=== PATIENT | female | born 1945 | race Caucasian/White ===

== ENCOUNTER 2017-12-12 05:19 | Inpatient (IN) ==
--- NOTE | 2017-12-12 08:35 | Internal Med History&Physical ---
Date of Encounter: 12/12/17 Time of Encounter: 08:29 Assessment and Plan (1) CHF (congestive heart failure) Current visit: Yes Status: Acute The patient presented here for the first time has history of a CABG 4 vessels in 1998 now presenting with congestive heart failure will obtain 2-D echo to see if is diastolic or systolic heart failure and she would need dialysis she makes very little urine according to her Qualifiers: Congestive heart failure type: unspecified Congestive heart failure chronicity: acute Qualified Code(s): I50.9 - Heart failure, unspecified (2) Pneumonia Current visit: Yes Status: Acute The chest x-ray from outside hospital she has right upper lobe pneumonia given patient information also home and on dialysis will place on Zosyn and send for blood culture Qualifiers: Pneumonia type: due to unspecified organism Laterality: right Lung location: upper lobe of lung Qualified Code(s): J18.1 - Lobar pneumonia, unspecified organism (3) HTN (hypertension) Current visit: Yes Status: Chronic Chronic and uncontrolled resume home medication and make some adjustment for better blood pressure control Qualifiers: Hypertension type: essential hypertension Qualified Code(s): I10 - Essential (primary) hypertension (4) Hx of CABG Current visit: Yes Status: Chronic History of bypass 1998 no chest pain at present with transient troponin as well (5) Diabetes 1.5, managed as type 2 Current visit: Yes Status: Chronic Chronic resume home medication and place on sliding scale (6) Hypothyroid Current visit: Yes Status: Chronic Chronic resume home medication and check a TSH Qualifiers: Hypothyroidism type: unspecified Qualified Code(s): E03.9 - Hypothyroidism , unspecified (7) ESRD (end stage renal disease) Current visit: Yes Status: Chronic Chronic patient followed by Dr. Hood. Patient's doctor does not come here so we will consult nephrology here for dialysis Internal Medicine - H&P: HPI Chief complaint: sob Admitted From: Hospital to Hospital Transfer Plans for Post Hospital Care: Home History of present illness: Ms. Sequeira is a 72 year old female Patient transfer from [facility] due to pneumoniaand congestive heart failure. Patient has history of CABG x 4 vessels 1998, hypertension, end- stage renal disease on hemodialysis, hypothyroidism, congestive heart failure, diabetes, COPD, patient presented to [facility] with chest congestion described as nonproductive cough and shortness of breath for 2 days fever and body aches and generally not feeling well. She resides at [address] [place] [address] chest x-ray at [facility] shows congestive heart failure and the pneumonia right upper lobe patient was given vancomycin and Zosyn and then transferred here patient appears comfortable on exam she had bilateral wheezing and some rales not in respiratory distress patient will be admitted will consult nephrology for hemodialysis also obtain 2-D echo and check serial troponin patient denies any chest pain no chills no nausea vomiting no diarrhea Past Med Surg Social Fam HX - Past Medical History Medical history: CHF, COPD, coronary artery disease, diabetes, hyperlipidemia, hypertension, renal disease, thyroid disease - Past Surgical History Surgical History: angioplasty/stent, cholecystectomy, orthopedic, other Internal Medicine - H&P: Meds Atorvastatin [Lipitor] 40 mg PO HS 12/12/17 [History] Buspirone HCl [Buspar] 15 mg PO DAILY 12/12/17 [History] Calcium Acetate [Phos-LO] 667 mg PO TID 12/12/17 [History] Carvedilol [Coreg] 6.125 mg PO BID 12/12/17 [History] Insulin Glargine [Lantus] 12/12/17 [History] Ipratropium/Albuterol Neb [Duoneb] 3 ml IH AD 12/12/17 [History] Levothyroxine Sodium [Tirosint] 100 mcg PO DAILY 12/12/17 [History] Linagliptin [Tradjenta] 5 mg PO DAILY 12/12/17 [History] Lisinopril [Zestril] 10 mg PO DAILY 12/12/17 [History] Sertraline [Zoloft] 100 mg PO DAILY 12/12/17 [History] amLODIPine [Norvasc] 5 mg PO DAILY 12/12/17 [History] traZODone [TraZODone] 50 mg PO HS 12/12/17 [History] All Systems PM: A 10-system review of systems was performed and is negative for pertinent findings except as documented above in the HPI. - Constitutional Constitutional: fatigue, malaise - EENT Eyes: no change in vision, no discharge, no pain, no photophobia Ears: no ear discharge, no ear pain, no tinnitus Nose, mouth and throat: no dysphagia, no nasal discharge, no neck pain, no sore throat - Cardiovascular Cardiovascular ROS IM: dyspnea, dyspnea on exertion - Respiratory Respiratory: cough, dyspnea on exertion, wheezing - Gastrointestinal Gastrointestinal: no abdominal pain, no diarrhea, no hematemesis, no hematochezia, no melena, no nausea, no vomiting - Genitourinary Genitourinary: no change in urinary stream, no dysuria, no flank pain, no hematuria - Constitutional Vitals: Temp Pulse Resp BP Pulse Ox 99.0 F 82 17 154/71 99 12/12/17 08:19 12/12/17 08:19 12/12/17 08:19 12/12/17 08:19 12/12/17 08:19 General appearance: Present: mild distress, A&O X 3 - Eye Eye exam: Present: PERRL, conjuntiva pink, sclera anicteric Pupils: Present: PERRL - Respiratory Respiratory exam: Present: decreased breath sounds, rales, wheezes - Cardiovascular Cardiovascular exam: Present: RRR, systolic murmur - GI/Abdominal GI/Abdominal exam: Present: normal bowel sounds, soft, no peritoneal signs. Absent: distended, tenderness - Extremities Exam Extremities exam: Present: warm, radial pulses palpable and symmetrical. Absent : calf tenderness, cyanotic, pedal edema
[2017-12-12] MEDS ORDERED: Naloxone 0.4 MG/ML INJ IVP PRN (08:43)
[2017-12-12] MEDS ORDERED: Ipratropium/Albuterol Neb 3 ML IH PRN (08:49)
[2017-12-12] MEDS ORDERED: D5% in Water 1,000 ML IVC PRN (08:51)
[2017-12-12] MEDS ORDERED: Dextrose Gel 15 GM/37.5 ML TUBE PO PRN ×2 (08:51)
[2017-12-12] MEDS ORDERED: *HR* Dextrose 50 % in Water (Syg) 50 ML SYRINGE IVP PRN (08:51)
[2017-12-12] MEDS ORDERED: Calcium Acetate 667 MG CAPSULE PO SCH (09:00)
[2017-12-12] MEDS: amLODIPine 5 MG TABLET PO SCH (10:26)
[2017-12-12] MEDS: Insulin LISPRO 300 UNITS/3 ML VIAL SQ SCH ×3 (11:36→21:05)
[2017-12-12] MEDS: Ipratropium/Albuterol Neb 3 ML IH SCH ×4 (11:37→23:26)
[2017-12-12] MEDS: Acetaminophen 325 MG TABLET PO PRN ×2 (11:41→21:07)
[2017-12-12] MEDS: Calcium Acetate 667 MG CAPSULE PO SCH ×2 (11:41→18:15)
--- NOTE | 2017-12-12 11:52 | Nephrology Consult Note ---
<Erin Alvarenga Shyla - Last Filed: 12/12/17 11:55> Date of Encounter: 12/12/17 Time of Encounter: 11:50 Assessment and Plan (1) ESRD (end stage renal disease) Status: Chronic Will plan for dialysis today Renal diet-ordered Strict I/Os-ordered Avoid nephrotoxins if possible (2) CHF (congestive heart failure) Status: Acute per primary team Qualifiers: Congestive heart failure type: unspecified Congestive heart failure chronicity: acute Qualified Code(s): I50.9 - Heart failure, unspecified (3) Diabetes 1.5, managed as type 2 Status: Chronic per primary team (4) HTN (hypertension) Status: Chronic per primary team Qualifiers: Hypertension type: essential hypertension Qualified Code(s): I10 - Essential (primary) hypertension History of Present Illness - Reason for Consult Consult date: 12/12/17 end stage renal disease - Chief Complaint CHF, ESRD on dialysis - History of Present Illness Ms. Sequeira is a 72 year old female well known to our practice who transferred from [facility] due to pneumonia and congestive heart failure. Patient has history of CABG x 4 vessels 1998, hypertension, end-stage renal disease on hemodialysis, hypothyroidism, congestive heart failure, diabetes, and COPD. She resides at [address] [place] [address]; chest x-ray at [facility] shows congestive heart failure and the pneumonia right upper lobe patient. Patient is a TTS dialysis patient at [facility] and she last had HD on Saturday. Past Med Surg Social Fam HX - Past Medical History Medical history: CHF, COPD, coronary artery disease, diabetes, hyperlipidemia, hypertension, renal disease, thyroid disease - Past Surgical History Surgical History: angioplasty/stent, cholecystectomy, orthopedic, other - Social History Smoking Status: Never smoker Smokeless Tobacco Status: No Alcohol use: none Medications and Allergies Atorvastatin [Lipitor] 40 mg PO HS 12/12/17 [History] Buspirone HCl [Buspar] 15 mg PO DAILY 12/12/17 [History] Calcium Acetate [Phos-LO] 667 mg PO TID 12/12/17 [History] Insulin Glargine [Lantus] 6 units SQ DAILY 12/12/17 [History] Ipratropium/Albuterol Neb [Duoneb] 3 ml IH AD 12/12/17 [History] Levothyroxine Sodium [Tirosint] 100 mcg PO DAILY 12/12/17 [History] Linagliptin [Tradjenta] 5 mg PO DAILY 12/12/17 [History] Lisinopril [Zestril] 10 mg PO DAILY 12/12/17 [History] Sertraline [Zoloft] 100 mg PO DAILY 12/12/17 [History] traZODone [TraZODone] 50 mg PO HS 12/12/17 [History] Carvedilol [Coreg] 25 mg PO BIDWM tablet 12/16/17 [Rx] Levofloxacin [Levaquin] 500 mg PO DAILY #1 tablet 12/16/17 [Rx] amLODIPine [Norvasc] 10 mg PO DAILY tablet 12/16/17 [Rx] predniSONE [PredniSONE] 40 mg PO DAILY #2 tablet 12/16/17 [Rx] 3 Allergy/AdvReac Type Severity Reaction Status Date / Time No Known Allergies Allergy Verified 12/12/17 10:25 Review of Systems All Systems: reviewed and no additional remarkable complaints except as stated Constitutional: malaise, no chills, no fever(s) Cardiovascular: dyspnea, no chest pain Respiratory: cough, dyspnea Gastrointestinal: no diarrhea, no vomiting Neurological: no behavioral changes Exam - Vital Signs Vital signs: Initial Vital Signs Temp Pulse Resp BP Pulse Ox 98.5 F 82 17 141/69 100 12/12/17 08:16 12/12/17 08:16 12/12/17 08:16 12/12/17 08:16 12/12/17 08:16 Vital Signs - Last 8 Hours Temp Pulse Resp BP Pulse Ox 12/12/17 11:40 18 97 12/12/17 11:24 99.9 F H 67 18 109/57 97 12/12/17 08:19 99.0 F 82 17 154/71 99 12/12/17 08:16 98.5 F 82 17 141/69 100 Intake and Output 12/11/17 12/12/17 12/12/17 23:59 07:59 15:59 Intake Total 0 / 0 Output Total 0 / 0 Balance 0 / 0 Intake: Oral 0 / 0 Output: Urine 0 / 0 Other: Weight 67.404 kg Blood Glucose* 130 Patient Weight 12/12/17 23:59 Weight 67.404 kg - General Appearance General appearance: cachectic, chronically ill, frail EENT: ATNC, mucous membranes moist, hearing intact, vision intact Neck: supple Respiratory: clear Cardiology: no edema, normal S1, normal S2 - Dialysis Access Dialysis Vascular Access: Arteriovenous Fistula Gastrointestinal: no tenderness, no guarding Integumentary: warm and dry Neurologic: alert and oriented x3 Psychiatric: mood/affect appropriate, cooperative Consult Discharge Plan - Plan Instructions: Heart Failure (DC), Chronic Hypertension (DC), Pneumonia (DC) Additional Instructions: Please follow up with your primary care physician within five days after your discharge from the hospital. Please continue oral antibiotics as prescribed (Levaquin 500 mg one tablet on 12/18/17). Continue oral steroids as prescribed. Your home meds have been changed as follows: 1. Amlodipine has been increased to 10mg once a day 2. Carvedilol has been increased to 25mg twice a day. closely monitor your blood pressure and HR. Hold Carvedilol for heart rate less than 50. Inform your primary care physician about these medication changes. These changes were made due to your elevated blood pressure readings. Resume dialysis sessions as per your primary hog room supervisor. Resume all other home medications as prescribed by your primary care physician. Referrals: Sandy Casey, ACTIVITIES CONCIERGE [Primary Care Provider] - (From [facility] at [facility]) Prescriptions: Levofloxacin [Levaquin] 500 mg PO DAILY #1 tablet <Shane Marquez - Last Filed: 12/19/17 15:49> Date of Encounter: 12/12/17 Exam - Vital Signs Vital signs: Initial Vital Signs Temp Pulse Resp BP Pulse Ox 98.5 F 82 17 141/69 100 12/12/17 08:16 12/12/17 08:16 12/12/17 08:16 12/12/17 08:16 12/12/17 08:16 Results - Lab Results 12/16/17 05:39 12/16/17 05:39 Most recent lab results Calcium 7.9 mg/dL (8.6-10.3) L 12/16/17 05:39 Phosphorus 2.1 mg/dL (2.7-4.5) L 12/16/17 05:39 Magnesium 2.0 mg/dL (1.6-2.6) 12/16/17 05:39 - Attending Attestation I examined this patient and my medical decision-making was reviewed with the Resident Physician. I agree with the documented findings, disposition and treatment plan as described except to the extent set forth below. Pt seen and examined with PMH of ESRD on HD TTS at [facility] HD unit presenting from [facility] where she was transferred for possible pNA/CHF. renal consulted for management of ESRD with HD. will provide HD T-Th-S during hospital stay starting today.
[2017-12-12] MEDS ORDERED: 0.9 % Sodium Chloride 250 ML IVC PRN (14:21)
[2017-12-12] MEDS ORDERED: 0.9 % Sodium Chloride 1,000 ML PRIME SCH (14:30)
[2017-12-12 14:51] LABS: Hepatitis B Surface Antigen Nonreactive (Nonreactive)
[2017-12-12] MEDS: MethylPREDNISolone 40 MG/ML VIAL IVP SCH (18:15)
[2017-12-12] MEDS: *HR* Heparin 5,000 UNIT/ML VIAL SQ SCH (18:15)
[2017-12-12] MEDS: traZODone 50 MG TABLET PO SCH (20:59)
[2017-12-13] MEDS: MethylPREDNISolone 40 MG/ML VIAL IVP SCH ×3 (00:25→17:11)
[2017-12-13] MEDS: Ipratropium/Albuterol Neb 3 ML IH SCH ×6 (04:11→23:10)
[2017-12-13 05:07] LABS: Hepatitis B Surface Antibody 184.74 mIU/mL
[2017-12-13] MEDS: *HR* Heparin 5,000 UNIT/ML VIAL SQ SCH ×2 (05:50→17:12)
[2017-12-13] MEDS ORDERED: *HR* Enoxaparin 40 MG/0.4 ML SYRINGE SQ SCH (06:00)
[2017-12-13 06:26] LABS: Hematocrit 32.9 % (35.3-44.9); Hemoglobin 9.6 g/dL (11.5-15.4); Mean Corpuscular HGB Conc 29.2 g/dL (31.6-35.5); Mean Corpuscular Hemoglobin 26.8 pg (28.0-33.3); Mean Corpuscular Volume 91.9 fL (83.0-100.0); Mean Platelet Volume 10.4 fL (9.4-12.4); Platelet Count 108 K/mcL (140-400); Red Blood Count 3.58 M/mcL (3.82-4.97); Red Cell Distribution Width 16.7 % (11.5-14.5)
[2017-12-13 07:06] LABS: Albumin/Globulin Ratio 0.8 (1.1-2.2); Bilirubin,Total 0.5 mg/dL (0.3-1.0); Calcium 8.3 mg/dL (8.6-10.3); Chol/HDL Ratio 2.7 (0-4.9); Globulin 3.8 g/dL (2.4-3.5); Magnesium 1.9 mg/dL (1.6-2.6); Potassium 3.8 mEq/L (3.5-5.1); Total Protein 6.8 g/dL (6.4-8.9)
[2017-12-13] MEDS: amLODIPine 5 MG TABLET PO SCH (07:42)
[2017-12-13] MEDS: Calcium Acetate 667 MG CAPSULE PO SCH ×3 (07:42→17:11)
[2017-12-13] MEDS: Insulin LISPRO 300 UNITS/3 ML VIAL SQ SCH ×4 (07:44→21:02)
--- NOTE | 2017-12-13 12:22 | Internal Med Progress Note ---
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, s/p HD on 12/12/17, clinically improved since admission monitor daily weights, I/Os, fluid restriction diet O2 supplementation monitor O2 sat, goal O2 sat: 88-92% will closely monitor respiratory status Qualifiers: Respiratory failure complication: hypoxia Qualified Code(s): J96.21 - Acute and chronic respiratory failure with hypoxia (2) HCAP (healthcare-associated pneumonia) Current Visit: Yes Status: Acute Assessment and plan: CXR prior to transfer reported RUL PNA will continue broad spectrum IV abx will de-escalate as per blood culture results and as pt clinically improves renally dosed abx (3) COPD exacerbation Current Visit: Yes Status: Acute Assessment and plan: Plan as listed above (4) CHF (congestive heart failure) Current Visit: Yes Status: Acute Assessment and plan: Plan as listed above 2D echo report noted Qualifiers: Congestive heart failure type: systolic Congestive heart failure chronicity : acute on chronic Qualified Code(s): I50.23 - Acute on chronic systolic ( congestive) heart failure (5) Diabetes mellitus Current Visit: Yes Status: Acute Assessment and plan: continue sliding scale insulin algorithm monitor FS and BG ADA diet Qualifiers: Diabetes mellitus type: type 2 Diabetes mellitus complication status: with unspecified complications Diabetes mellitus pediatrician active practice insulin use: with mcfp use Qualified Code(s): E11.8 - Type 2 diabetes mellitus with unspecified complications; Z79.4 - USP (current) use of insulin; Z79.4 - USP ( current) use of insulin; Z79.4 - USP (current) use of insulin; Z79.4 - USP (current) use of insulin (6) ESRD (end stage renal disease) Current Visit: Yes Status: Chronic Assessment and plan: Nephrology on board and consultation appreciated continue HD on //Sat (7) HTN (hypertension) Current Visit: Yes Status: Chronic Assessment and plan: BP within acceptable range continue home meds Qualifiers: Hypertension type: essential hypertension Qualified Code(s): I10 - Essential (primary) hypertension (8) Hypothyroid Current Visit: Yes Status: Chronic Assessment and plan: continue home dose of levothyroxine Qualifiers: Hypothyroidism type: unspecified Qualified Code(s): E03.9 - Hypothyroidism , unspecified (9) DVT prophylaxis Current Visit: Yes Status: Acute Assessment and plan: Heparin SQ - Subjective Interval history: Patient seen and examined at bedside. Resting in bed and reports of feeling better compared to previous day. She received HD yesterday (12/12/17) - Constitutional Vitals: Temp Pulse Resp BP Pulse Ox 98.2 F 66 16 145/52 94 12/13/17 10:15 12/13/17 10:15 12/13/17 11:35 12/13/17 11:18 12/13/17 11:35 General appearance: Present: A&O X 3, no acute distress - Head Head exam: Present: atraumatic, normocephalic - Eye Eye exam: Present: conjuntiva pink, sclera anicteric - Respiratory Respiratory exam: Absent: respiratory distress, wheezes (coarse breath sounds in b/l Upper lobes) - Cardiovascular Cardiovascular exam: Present: RRR, +S1, +S2. Absent: diastolic murmur, gallop, rubs, systolic murmur - GI/Abdominal GI/Abdominal exam: Present: normal bowel sounds, soft, no peritoneal signs. Absent: distended, tenderness - Extremities Exam Extremities exam: Present: warm, radial pulses palpable and symmetrical. Absent : calf tenderness Additional comments: s/p right foot amputation - Neurological Exam Neurological exam: Present: alert, oriented X3 - Psychiatric Psychiatric exam: Present: normal affect, normal mood Internal Medicine: Result - Labs CBC & Chem 7: 12/13/17 05:41 12/13/17 05:41 Labs: Short CBC 12/13/17 Range/Units 05:41 WBC 2.8 L (4.3-11.1) K/mcL Hgb 9.6 L (11.5-15.4) g/dL Hct 32.9 L (35.3-44.9) % Plt Count 108 L (140-400) K/mcL BMP 12/13/17 05:41 Sodium 135 L Potassium 3.8 Chloride 100 Carbon Dioxide 28 BUN 25 H Creatinine 2.06 H Glucose 197 H Calcium 8.3 L Cardiac Enzymes 12/12/17 12/12/17 Range/Units 14:05 21:16 Troponin I 0.07 H* 0.06 H* (< 0.04) ng/mL Liver Function 12/13/17 Range/Units 05:41 Total Bilirubin 0.5 (0.3-1.0) mg/dL AST 18 (13-39) Units/L ALT 7 (7-52) Units/L Alkaline Phosphatase 70 (34-104) Units/L Albumin 3.0 L (3.5-5.7) g/dL - Impressions Impressions Echocardiogram 12/12/17 08:49 Impressions: LVEF 30-35%. Normal LV chamber size and wall thickness. Global left ventricular systolic dysfunction. Indeterminate diastolic function. Atypical septal motion consistent with post-operative status. Mildly dilated and hypokinetic right ventricle. Moderate bi-atrial enlargement. Mild mitral regurgitation. Mild tricuspid regurgitation. Severe pulmonary hypertension. Estimated RVSP is 69-74 mmHg. Left Ventricular Wall Motion: Rest Echo Findings The apex, apical inferior, mid inferior, basal inferior, apical anterior, mid anterior, basal anterior, apical septal, mid inferior septal, basal inferior septal, apical lateral, mid anterior lateral, basal anterior lateral, mid anterior septal, mid inferior lateral, basal anterior septal and basal inferior lateral pedroza were hypokinetic. Findings: Study Quality * Technically adequate exam. ECG Findings * Grossly appeared to be sinus rhythm. Left Ventricle * LVEF 30-35%. * Normal LV chamber size and wall thickness. * Global left ventricular systolic dysfunction. * Indeterminate diastolic function. * Atypical septal motion consistent with post-operative status. Right Ventricle * Mildly dilated and hypokinetic right ventricle. Left Atrium * Moderately dilated left atrium. Right Atrium * Moderately dilated right atrium. Interatrial Septum * Interatrial septum not well evaluated. Aortic Valve * Aortic valve not well visualized. * No aortic stenosis. * No aortic regurgitation. Mitral Valve * Mild mitral annular calcification * Mild mitral regurgitation. * No mitral stenosis. Tricuspid Valve * Normal tricuspid valve structure. * Mild tricuspid regurgitation. * Severe pulmonary hypertension. * Estimated RVSP is 69-74 mmHg. * Estimated RA pressure is 5-10 mmHg. Pulmonic Valve * Pulmonic valve not well visualized. * No pulmonic regurgitation. Aorta * Normally sized aortic root. Pericardium * The pericardium appears normal. IVC * The IVC is dilated. * > 50% respiratory change Pulmonary Artery * Normal visualized portions of the main pulmonary artery. Consult Discharge Plan - Plan Referrals: Sandy Casey, ASSISTANT PLANT CONTROLLER [Primary Care Provider] - (From [facility] at [facility])
[2017-12-13] MEDS ORDERED: Vancomycin 1,000 MG in D5% in Water 250 ML IVPB SCH (13:00)
[2017-12-13] MEDS ORDERED: Vancomycin 500 MG in 0.9 % Sodium Chloride Mini Bag 100 ML IVPB ONE (14:00)
--- NOTE | 2017-12-13 16:19 | Nephrology Progress Note ---
Date of Encounter: 12/13/17 Time of Encounter: 16:17 - Assessment and Plan (1) ESRD (end stage renal disease) Current Visit: Yes Status: Chronic HD TRS Anticipate dialysis Saturday Renal diet. Renal dose medications. Additional dialysis as needed. (2) Pneumonia Current Visit: Yes Status: Acute Per primary team. Patient feels better today. Qualifiers: Pneumonia type: due to unspecified organism Laterality: right Lung location: upper lobe of lung Qualified Code(s): J18.1 - Lobar pneumonia, unspecified organism (3) HTN (hypertension) Current Visit: Yes Status: Chronic Blood pressure controlled. Titrate antihypertensive medications as needed. Qualifiers: Hypertension type: essential hypertension Qualified Code(s): I10 - Essential (primary) hypertension Subjective Principal diagnosis: ESRD Interval history: Patient seen. She feels better. Anticipate dialysis Saturday. Objective - Vital Signs Vital signs: Vital Signs Temp Pulse Resp BP Pulse Ox 12/13/17 15:52 16 96 12/13/17 15:08 98.4 F 72 16 136/53 98 12/13/17 12:15 98.1 F 68 18 148/62 97 12/13/17 11:35 16 94 12/13/17 11:18 145/52 12/13/17 10:15 98.2 F 66 18 146/63 96 12/13/17 09:58 97.9 F 65 16 150/62 95 12/13/17 08:20 66 18 170/68 93 12/13/17 06:42 97.5 F L 60 17 152/70 93 12/13/17 03:10 97.5 F L 66 16 155/68 95 12/13/17 00:22 97.4 F L 60 20 124/51 93 12/12/17 23:26 15 88 12/12/17 21:05 101.3 F H 65 20 124/51 94 12/12/17 19:00 98.7 F 18 148/72 12/12/17 18:30 146/63 12/12/17 18:15 136/57 12/12/17 18:00 130/61 12/12/17 17:45 123/56 12/12/17 17:30 121/54 12/12/17 17:15 119/52 12/12/17 17:00 122/53 12/12/17 16:45 118/51 12/12/17 16:30 110/54 Intake and Output 12/13/17 12/13/17 12/13/17 07:59 15:59 23:59 Intake Total 0 / 0 1090 / 1090 Balance 0 / 0 1090 / 1090 Intake: IV Fluids 100 / 100 Zosyn 3.375 GM In 0.9 % Sodium 100 / 100 Chloride 100 ML @ 25 mls/hr IVPB Q12H YANET Rx#:[id number] Oral 0 / 0 990 / 990 Other: Meal Lunch Percent of Meal Consumed 100% Stool Size Large Stool Consistency soft Stool Characteristics Normal for Patient Stool Color Brown Green # Voids 1 # Urine Diapers 1 # Bowel Movements 1 Weight 58.377 kg Blood Glucose* 218 352 Patient Weight 12/13/17 23:59 Weight 58.377 kg - General Appearance General appearance: Present: well-developed, well-nourished EENT: Present: ATNC Neck: Present: supple Cardiology: Present: regular rate Integumentary: Present: warm and dry Neurologic: Present: alert and oriented x3 Psychiatric: Present: mood/affect appropriate - Lab 12/13/17 05:41 12/13/17 05:41 Most recent lab results Calcium 8.3 mg/dL (8.6-10.3) L 12/13/17 05:41 Phosphorus 3.2 mg/dL (2.7-4.5) 12/13/17 05:41 Magnesium 1.9 mg/dL (1.6-2.6) 12/13/17 05:41 Consult Discharge Plan - Plan Referrals: Sandy Casey, HOSPITALITY HOST [Primary Care Provider] - (From [facility] at [facility])
[2017-12-13] MEDS: traZODone 50 MG TABLET PO SCH (21:01)
[2017-12-13] MEDS: traMADol 50 MG TABLET PO PRN (21:01)
[2017-12-14] MEDS: Ipratropium/Albuterol Neb 3 ML IH SCH ×6 (04:09→23:52)
[2017-12-14] MEDS: MethylPREDNISolone 40 MG/ML VIAL IVP SCH ×2 (06:23→17:09)
[2017-12-14] MEDS: *HR* Heparin 5,000 UNIT/ML VIAL SQ SCH ×2 (06:23→17:08)
[2017-12-14 06:47] LABS: Basophils % 0.5 %; Hemoglobin 9.6 g/dL (11.5-15.4); Immature Granulocytes % 1.5 % (0-4); Lymphocytes # 0.6 K/mcL (0.6-4.6); Lymphocytes % 15.5 %; Mean Corpuscular HGB Conc 29.1 g/dL (31.6-35.5); Mean Corpuscular Hemoglobin 26.5 pg (28.0-33.3); Mean Corpuscular Volume 91.2 fL (83.0-100.0); Mean Platelet Volume 10.5 fL (9.4-12.4); Monocytes # 0.4 K/mcL (0.0-1.3); Monocytes % 10.1 %; Neutrophils # 2.9 K/mcL (1.6-8.9); Nucleated Red Blood Cells 2.5 /100 WBC (0); Platelet Count 128 K/mcL (140-400); Red Blood Count 3.62 M/mcL (3.82-4.97); Red Cell Distribution Width 16.6 % (11.5-14.5); Segmented Neutrophils % 72.4 %
[2017-12-14 07:12] LABS: Calcium 8.1 mg/dL (8.6-10.3); Magnesium 2.1 mg/dL (1.6-2.6); Phosphorous 2.8 mg/dL (2.7-4.5); Potassium 3.6 mEq/L (3.5-5.1)
[2017-12-14] MEDS ORDERED: 0.9 % Sodium Chloride 250 ML IVC PRN (08:03)
[2017-12-14] MEDS: Calcium Acetate 667 MG CAPSULE PO SCH ×3 (08:10→16:15)
[2017-12-14] MEDS: amLODIPine 5 MG TABLET PO SCH (08:11)
[2017-12-14] MEDS: Insulin LISPRO 300 UNITS/3 ML VIAL SQ SCH ×4 (08:13→21:22)
[2017-12-14] MEDS ORDERED: 0.9 % Sodium Chloride 1,000 ML PRIME SCH (08:15)
[2017-12-14] MEDS ORDERED: 0.9 % Sodium Chloride 1,000 ML ONE (09:54)
--- NOTE | 2017-12-14 10:22 | Nephrology Progress Note ---
Date of Encounter: 12/14/17 Time of Encounter: 10:20 - Assessment and Plan (1) ESRD (end stage renal disease) Current Visit: Yes Status: Chronic HD TRS Patient seen on dialysis today. Renal diet. Renal dose medications. Additional dialysis as needed. (2) Pneumonia Current Visit: Yes Status: Acute Per primary team. Patient feels better today. Qualifiers: Pneumonia type: due to unspecified organism Laterality: right Lung location: upper lobe of lung Qualified Code(s): J18.1 - Lobar pneumonia, unspecified organism (3) HTN (hypertension) Current Visit: Yes Status: Chronic Blood pressure controlled. Titrate antihypertensive medications as needed. Qualifiers: Hypertension type: essential hypertension Qualified Code(s): I10 - Essential (primary) hypertension Subjective Principal diagnosis: ESRD Interval history: Patient seen on dialysis. She feels better. No new complaints. Objective - Vital Signs Vital signs: Vital Signs Temp Pulse Resp BP Pulse Ox 12/14/17 09:55 146/67 12/14/17 09:40 149/81 12/14/17 09:20 152/73 12/14/17 09:05 160/79 12/14/17 08:50 97.5 F L 20 163/74 12/14/17 07:11 16 99 12/14/17 06:55 97.6 F 58 16 160/71 98 12/14/17 04:23 98.6 F 67 19 160/84 99 12/14/17 00:21 98.3 F 69 16 151/62 98 12/13/17 23:10 17 97 12/13/17 21:10 97 12/13/17 19:44 17 97 12/13/17 19:05 98.7 F 75 18 154/65 97 12/13/17 15:52 16 96 12/13/17 15:08 98.4 F 72 16 136/53 98 12/13/17 12:15 98.1 F 68 18 148/62 97 12/13/17 11:35 16 94 12/13/17 11:18 145/52 Intake and Output 12/13/17 12/14/17 12/14/17 23:59 07:59 15:59 Intake Total 100 / 100 720 / 720 Balance 100 / 100 720 / 720 Intake: IV Fluids 100 / 100 Zosyn 3.375 GM In 0.9 % Sodium 100 / 100 Chloride 100 ML @ 25 mls/hr IVPB Q12H [facility] Rx#:[id number] Oral 120 / 120 Intake, Rinseback and Flushes 600 / 600 Other: Meal Breakfast Percent of Meal Consumed 15% Stool Size Moderate # Bowel Movement Diapers 1 Weight 59.506 kg Blood Glucose* 268 266 Hemodialysis Net Fluid Removed 185 (mL) Patient Weight 12/14/17 23:59 Weight 59.506 kg - General Appearance General appearance: Present: well-developed, well-nourished EENT: Present: ATNC Respiratory: Present: clear Cardiology: Present: no edema, regular rate Dialysis Vascular Access: Venous Catheter (AV fistula Left upper arm venous catheter right IJ.) thrill: Yes bruit: Yes Gastrointestinal: Present: no tenderness Integumentary: Present: warm and dry Neurologic: Present: alert and oriented x3 Psychiatric: Present: mood/affect appropriate - Lab 12/14/17 06:21 12/14/17 06:21 Most recent lab results Calcium 8.1 mg/dL (8.6-10.3) L 12/14/17 06:21 Phosphorus 2.8 mg/dL (2.7-4.5) 12/14/17 06:21 Magnesium 2.1 mg/dL (1.6-2.6) 12/14/17 06:21 Consult Discharge Plan - Plan Referrals: Sandy Casey, TANNING SOLUTION MAKER [Primary Care Provider] - (From [facility] at [facility])
--- NOTE | 2017-12-14 13:01 | Internal Med Progress Note ---
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 MANAGEMENT MANAGER for fluid removal, receiving HD today 12/14/17, clinically improved since admission monitor daily weights, I/Os, fluid restriction diet O2 supplementation monitor O2 sat, goal O2 sat: 88-92% will closely monitor respiratory status Qualifiers: Respiratory failure complication: hypoxia Qualified Code(s): J96.21 - Acute and chronic respiratory failure with hypoxia (2) HCAP (healthcare-associated pneumonia) Current Visit: Yes Status: Acute Assessment and plan: CXR prior to transfer reported RUL PNA will continue broad spectrum IV abx renally dosing IV abx d/sobeida Vancomycin (3) COPD exacerbation Current Visit: Yes Status: Acute Assessment and plan: Plan as listed above (4) CHF (congestive heart failure) Current Visit: Yes Status: Acute Assessment and plan: Plan as listed above 2D echo report noted Qualifiers: Congestive heart failure type: systolic Congestive heart failure chronicity : acute on chronic Qualified Code(s): I50.23 - Acute on chronic systolic ( congestive) heart failure (5) Diabetes mellitus Current Visit: Yes Status: Chronic Assessment and plan: continue sliding scale insulin algorithm monitor FS and BG ADA diet Qualifiers: Diabetes mellitus type: type 2 Diabetes mellitus complication status: with unspecified complications Diabetes mellitus superintendent terminal insulin use: with superintendent terminal use Qualified Code(s): E11.8 - Type 2 diabetes mellitus with unspecified complications; Z79.4 - correction (current) use of insulin; Z79.4 - correction ( current) use of insulin; Z79.4 - joint terminal attack controller (current) use of insulin; Z79.4 - correction (current) use of insulin (6) ESRD (end stage renal disease) Current Visit: Yes Status: Chronic Assessment and plan: Nephrology on board and consultation appreciated continue HD on //Sat (7) HTN (hypertension) Current Visit: Yes Status: Chronic Assessment and plan: BP within acceptable range continue home meds Qualifiers: Hypertension type: essential hypertension Qualified Code(s): I10 - Essential (primary) hypertension (8) Hypothyroid Current Visit: Yes Status: Chronic Assessment and plan: continue home dose of levothyroxine Qualifiers: Hypothyroidism type: unspecified Qualified Code(s): E03.9 - Hypothyroidism , unspecified (9) DVT prophylaxis Current Visit: Yes Status: Acute Assessment and plan: Heparin SQ - Subjective Interval history: Patient seen and examined in hemodialysis. Resting in bed and reports of feeling better compared to previous day. - Constitutional Vitals: Temp Pulse Resp BP Pulse Ox 97.5 F L 58 20 151/70 99 12/14/17 08:50 12/14/17 06:55 12/14/17 08:50 12/14/17 11:40 12/14/17 07:11 General appearance: Present: A&O X 3, no acute distress - Head Head exam: Present: atraumatic, normocephalic - Eye Eye exam: Present: conjuntiva pink, sclera anicteric - Respiratory Respiratory exam: Absent: rales, respiratory distress, wheezes - Cardiovascular Cardiovascular exam: Present: RRR, +S1, +S2. Absent: diastolic murmur, gallop, rubs, systolic murmur - GI/Abdominal GI/Abdominal exam: Present: normal bowel sounds, soft, no peritoneal signs. Absent: distended, tenderness - Extremities Exam Extremities exam: Present: warm, radial pulses palpable and symmetrical. Absent : calf tenderness Additional comments: s/p right foot amputation - Neurological Exam Neurological exam: Present: alert, oriented X3 - Psychiatric Psychiatric exam: Present: normal affect, normal mood Internal Medicine: Result - Labs CBC & Chem 7: 12/14/17 06:21 12/14/17 06:21 Labs: Short CBC 12/14/17 Range/Units 06:21 WBC 4.1 L (4.3-11.1) K/mcL Hgb 9.6 L (11.5-15.4) g/dL Hct 33.0 L (35.3-44.9) % Plt Count 128 L (140-400) K/mcL Neutrophils # 2.9 (1.6-8.9) K/mcL BMP 12/14/17 06:21 Sodium 134 L Potassium 3.6 Chloride 97 L Carbon Dioxide 31 H BUN 49 H Creatinine 3.45 H Glucose 274 H Calcium 8.1 L Consult Discharge Plan - Plan Referrals: Sandy Casey, STATION CAPTAIN [Primary Care Provider] - (From [facility] at [facility])
[2017-12-14] MEDS ORDERED: Vancomycin 1,000 MG in D5% in Water 250 ML IVPB ONE (16:00)
[2017-12-14] MEDS: traZODone 50 MG TABLET PO SCH (21:22)
[2017-12-15] MEDS: Ipratropium/Albuterol Neb 3 ML IH SCH ×6 (04:07→23:14)
[2017-12-15] MEDS: *HR* Heparin 5,000 UNIT/ML VIAL SQ SCH ×2 (06:00→17:11)
[2017-12-15] MEDS: amLODIPine 5 MG TABLET PO SCH (07:58)
[2017-12-15] MEDS: Calcium Acetate 667 MG CAPSULE PO SCH ×3 (07:59→16:09)
[2017-12-15] MEDS: predniSONE 20 MG TABLET PO SCH (07:59)
[2017-12-15] MEDS: Insulin LISPRO 300 UNITS/3 ML VIAL SQ SCH ×5 (08:00→21:10)
[2017-12-15 09:42] LABS: Basophils % 0.2 %; Hematocrit 33.3 % (35.3-44.9); Hemoglobin 9.7 g/dL (11.5-15.4); Immature Granulocytes % 1.4 % (0-4); Lymphocytes # 1.2 K/mcL (0.6-4.6); Lymphocytes % 23.4 %; Mean Corpuscular HGB Conc 29.1 g/dL (31.6-35.5); Mean Corpuscular Hemoglobin 26.6 pg (28.0-33.3); Mean Corpuscular Volume 91.5 fL (83.0-100.0); Mean Platelet Volume 10.5 fL (9.4-12.4); Monocytes # 0.4 K/mcL (0.0-1.3); Monocytes % 7.4 %; Neutrophils # 3.4 K/mcL (1.6-8.9); Nucleated Red Blood Cells 2.4 /100 WBC (0); Platelet Count 130 K/mcL (140-400); Red Blood Count 3.64 M/mcL (3.82-4.97); Red Cell Distribution Width 16.8 % (11.5-14.5); Segmented Neutrophils % 67.6 %
[2017-12-15 10:04] LABS: Phosphorous 2.5 mg/dL (2.7-4.5); Potassium 3.8 mEq/L (3.5-5.1)
--- NOTE | 2017-12-15 11:00 | Nephrology Progress Note ---
Date of Encounter: 12/15/17 Time of Encounter: 10:58 - Assessment and Plan (1) ESRD (end stage renal disease) Current Visit: Yes Status: Chronic HD TRS Renal diet. Renal dose medications. Additional dialysis as needed. (2) Pneumonia Current Visit: Yes Status: Acute Per primary team. Patient feels better today. Qualifiers: Pneumonia type: due to unspecified organism Laterality: right Lung location: upper lobe of lung Qualified Code(s): J18.1 - Lobar pneumonia, unspecified organism (3) HTN (hypertension) Current Visit: Yes Status: Chronic Blood pressure controlled. Titrate antihypertensive medications as needed. Qualifiers: Hypertension type: essential hypertension Qualified Code(s): I10 - Essential (primary) hypertension Subjective Principal diagnosis: ESRD Interval history: Patient seen. She has no new complaints. She wants to go home. Objective - Vital Signs Vital signs: Vital Signs Temp Pulse Resp BP Pulse Ox 12/15/17 07:20 98.2 F 55 16 161/65 99 12/14/17 23:52 16 99 12/14/17 23:20 98.4 F 62 18 145/64 100 12/14/17 20:12 17 98 12/14/17 19:29 98.2 F 61 16 159/74 100 12/14/17 16:10 16 100 12/14/17 15:45 98.5 F 65 18 147/73 100 12/14/17 12:45 98.0 F 16 154/68 12/14/17 12:40 153/69 12/14/17 12:25 156/66 12/14/17 12:10 156/70 12/14/17 11:55 160/69 12/14/17 11:40 151/70 12/14/17 11:25 150/68 12/14/17 11:10 153/69 Intake and Output 12/14/17 12/15/17 12/15/17 23:59 07:59 15:59 Intake Total 118 / 118 0 / 0 Balance 118 / 118 0 / 0 Intake: Oral 118 / 118 0 / 0 Other: Meal Ice cream Percent of Meal Consumed 15% Stool Size Smear Stool Consistency liquid # Urine Diapers 1 # Bowel Movement Diapers 1 Blood Glucose* 236 202 - General Appearance General appearance: Present: well-developed, well-nourished EENT: Present: ATNC Cardiology: Present: regular rate Integumentary: Present: warm and dry Neurologic: Present: alert and oriented x3 Psychiatric: Present: mood/affect appropriate - Lab 12/15/17 08:56 12/15/17 08:56 Most recent lab results Calcium 8.0 mg/dL (8.6-10.3) L 12/15/17 08:56 Phosphorus 2.5 mg/dL (2.7-4.5) L 12/15/17 08:56 Magnesium 2.0 mg/dL (1.6-2.6) 12/15/17 08:56 Consult Discharge Plan - Plan Referrals: Sandy Casey, SUPERVISOR TELEPHONE CLERKS [Primary Care Provider] - (From [facility] at [facility])
[2017-12-15] MEDS ORDERED: Aminoglycoside Consult 1 EACH MC ONE (14:16)
--- NOTE | 2017-12-15 15:01 | Internal Med Progress Note ---
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, s/p HD 12/14/17, clinically improved since admission monitor daily weights, I/Os, fluid restriction diet O2 supplementation monitor O2 sat, goal O2 sat: 88-92% will closely monitor respiratory status Qualifiers: Respiratory failure complication: hypoxia Qualified Code(s): J96.21 - Acute and chronic respiratory failure with hypoxia (2) HCAP (healthcare-associated pneumonia) Current Visit: Yes Status: Acute Assessment and plan: CXR prior to transfer reported RUL PNA will continue broad spectrum IV abx renally dosing IV abx will de-escalate to PO abx prelim blood culture reports NO growth, will follow up official reports (3) COPD exacerbation Current Visit: Yes Status: Acute Assessment and plan: Plan as listed above (4) CHF (congestive heart failure) Current Visit: Yes Status: Acute Assessment and plan: Plan as listed above 2D echo report noted Qualifiers: Congestive heart failure type: systolic Congestive heart failure chronicity : acute on chronic Qualified Code(s): I50.23 - Acute on chronic systolic ( congestive) heart failure (5) Diabetes mellitus Current Visit: Yes Status: Chronic Assessment and plan: Noted to be hyperglycemic added Levemir 14units SQ qHS and humalog 4units SQ TIDAC continue sliding scale insulin algorithm monitor FS and BG ADA diet will adjust insulin dosing as per her insulin requirements Qualifiers: Diabetes mellitus type: type 2 Diabetes mellitus complication status: with unspecified complications Diabetes mellitus director long term care insulin use: with director long term care use Qualified Code(s): E11.8 - Type 2 diabetes mellitus with unspecified complications; Z79.4 - oil heaterman (current) use of insulin; Z79.4 - oil heaterman ( current) use of insulin; Z79.4 - shelter (current) use of insulin; Z79.4 - shelter (current) use of insulin (6) ESRD (end stage renal disease) Current Visit: Yes Status: Chronic Assessment and plan: Nephrology on board and consultation appreciated continue HD on urs/Sat (7) HTN (hypertension) Current Visit: Yes Status: Chronic Assessment and plan: BP within acceptable range continue home meds Qualifiers: Hypertension type: essential hypertension Qualified Code(s): I10 - Essential (primary) hypertension (8) Hypothyroid Current Visit: Yes Status: Chronic Assessment and plan: continue home dose of levothyroxine Qualifiers: Hypothyroidism type: unspecified Qualified Code(s): E03.9 - Hypothyroidism , unspecified (9) DVT prophylaxis Current Visit: Yes Status: Acute Assessment and plan: Heparin SQ - Subjective Interval history: Patient seen and examined at bedside. Resting in bed and reports of feeling significantly better compared to previous day. Will continue another day of IV abx and will de-escalate to PO abx in am and tentative d/c to NH in am if remains clinically stable. - Constitutional Vitals: Temp Pulse Resp BP Pulse Ox 98.5 F 58 16 146/64 98 12/15/17 11:21 12/15/17 11:21 12/15/17 11:21 12/15/17 11:21 12/15/17 11:21 General appearance: Present: A&O X 3, no acute distress - Head Head exam: Present: atraumatic, normocephalic - Eye Eye exam: Present: conjuntiva pink, sclera anicteric - Respiratory Respiratory exam: Absent: rales (equal air entry bilaterally ), respiratory distress, wheezes - Cardiovascular Cardiovascular exam: Present: RRR, +S1, +S2. Absent: diastolic murmur, gallop, rubs, systolic murmur - GI/Abdominal GI/Abdominal exam: Present: normal bowel sounds, soft, no peritoneal signs. Absent: distended, tenderness - Extremities Exam Extremities exam: Present: warm, radial pulses palpable and symmetrical (s/p right foot amputation ). Absent: calf tenderness - Neurological Exam Neurological exam: Present: alert, oriented X3 - Psychiatric Psychiatric exam: Present: normal affect, normal mood Internal Medicine: Result - Labs CBC & Chem 7: 12/15/17 08:56 12/15/17 08:56 Labs: Short CBC 12/15/17 Range/Units 08:56 WBC 5.0 (4.3-11.1) K/mcL Hgb 9.7 L (11.5-15.4) g/dL Hct 33.3 L (35.3-44.9) % Plt Count 130 L (140-400) K/mcL Neutrophils # 3.4 (1.6-8.9) K/mcL BMP 12/15/17 08:56 Sodium 134 L Potassium 3.8 Chloride 99 Carbon Dioxide 26 BUN 36 H Creatinine 3.00 H Glucose 253 H Calcium 8.0 L Consult Discharge Plan - Plan Referrals: Sandy Casey, WEB DEVELOPER [Primary Care Provider] - (From [facility] at [facility])
[2017-12-15] MEDS ORDERED: Insulin DETEMIR 100 UNIT/ML X5UNITS SQ SCH (21:00)
[2017-12-15] MEDS: traZODone 50 MG TABLET PO SCH (21:10)
[2017-12-15] MEDS: traMADol 50 MG TABLET PO PRN (23:15)
[2017-12-16] MEDS: Ipratropium/Albuterol Neb 3 ML IH SCH ×3 (03:57→11:46)
[2017-12-16] MEDS: *HR* Heparin 5,000 UNIT/ML VIAL SQ SCH (05:16)
[2017-12-16 05:54] LABS: Basophils % 0.2 %; Hematocrit 33.1 % (35.3-44.9); Hemoglobin 10.1 g/dL (11.5-15.4); Immature Granulocytes % 1.5 % (0-4); Lymphocytes # 1.1 K/mcL (0.6-4.6); Mean Corpuscular HGB Conc 30.5 g/dL (31.6-35.5); Mean Corpuscular Hemoglobin 27.2 pg (28.0-33.3); Mean Corpuscular Volume 89.2 fL (83.0-100.0); Mean Platelet Volume 10.6 fL (9.4-12.4); Monocytes # 0.5 K/mcL (0.0-1.3); Monocytes % 9.5 %; Neutrophils # 3.6 K/mcL (1.6-8.9); Nucleated Red Blood Cells 1.7 /100 WBC (0); Platelet Count 124 K/mcL (140-400); Red Blood Count 3.71 M/mcL (3.82-4.97); Red Cell Distribution Width 16.9 % (11.5-14.5); Segmented Neutrophils % 67.8 %
[2017-12-16 06:37] LABS: Calcium 7.9 mg/dL (8.6-10.3); Phosphorous 2.1 mg/dL (2.7-4.5); Potassium 3.8 mEq/L (3.5-5.1)
[2017-12-16] MEDS ORDERED: 0.9 % Sodium Chloride 250 ML IVC PRN (07:41)
[2017-12-16] MEDS: predniSONE 20 MG TABLET PO SCH (08:00)
[2017-12-16] MEDS: Calcium Acetate 667 MG CAPSULE PO SCH ×2 (08:00→11:59)
[2017-12-16] MEDS: Insulin LISPRO 300 UNITS/3 ML VIAL SQ SCH ×4 (09:08→12:01)
[2017-12-16] MEDS: amLODIPine 5 MG TABLET PO SCH (09:13)
[2017-12-16 11:29] VITALS: BP 140/58
--- NOTE | 2017-12-16 11:42 | Discharge Summary ---
Date of Encounter: 12/16/17 Time of Encounter: 10:50 ( ) - Discharge Diagnosis (1) Acute and chronic respiratory failure Priority: Primary Status: Resolved Qualifiers: Respiratory failure complication: hypoxia Qualified Code(s): J96.21 - Acute and chronic respiratory failure with hypoxia (2) HCAP (healthcare-associated pneumonia) Priority: Primary Status: Acute (3) COPD exacerbation Priority: Primary Status: Acute (4) CHF (congestive heart failure) Priority: Secondary Status: Acute Qualifiers: Congestive heart failure type: systolic Congestive heart failure chronicity : acute on chronic Qualified Code(s): I50.23 - Acute on chronic systolic ( congestive) heart failure (5) Diabetes mellitus Priority: Secondary Status: Chronic Qualifiers: Diabetes mellitus type: type 2 Diabetes mellitus complication status: with unspecified complications Diabetes mellitus rodent exterminator insulin use: with rodent exterminator use Qualified Code(s): E11.8 - Type 2 diabetes mellitus with unspecified complications; Z79.4 - long term acute care registered nurse (current) use of insulin; Z79.4 - long term acute care registered nurse ( current) use of insulin; Z79.4 - USP (current) use of insulin; Z79.4 - long term acute care registered nurse (current) use of insulin (6) ESRD (end stage renal disease) Priority: Secondary Status: Chronic (7) HTN (hypertension) Priority: Secondary Status: Chronic Qualifiers: Hypertension type: essential hypertension Qualified Code(s): I10 - Essential (primary) hypertension (8) Hypothyroid Priority: Secondary Status: Chronic Qualifiers: Hypothyroidism type: unspecified Qualified Code(s): E03.9 - Hypothyroidism , unspecified (9) DVT prophylaxis Priority: Secondary Status: Acute - Discharge Medications Prescriptions: Levofloxacin [Levaquin] 500 mg PO DAILY #1 tablet Home Medications: Atorvastatin [Lipitor] 40 mg PO HS 12/12/17 [History] Buspirone HCl [Buspar] 15 mg PO DAILY 12/12/17 [History] Calcium Acetate [Phos-LO] 667 mg PO TID 12/12/17 [History] Insulin Glargine [Lantus] 6 units SQ DAILY 12/12/17 [History] Ipratropium/Albuterol Neb [Duoneb] 3 ml IH AD 12/12/17 [History] Levothyroxine Sodium [Tirosint] 100 mcg PO DAILY 12/12/17 [History] Linagliptin [Tradjenta] 5 mg PO DAILY 12/12/17 [History] Lisinopril [Zestril] 10 mg PO DAILY 12/12/17 [History] Sertraline [Zoloft] 100 mg PO DAILY 12/12/17 [History] traZODone [TraZODone] 50 mg PO HS 12/12/17 [History] Carvedilol [Coreg] 25 mg PO BIDWM tablet 12/16/17 [Rx] Levofloxacin [Levaquin] 500 mg PO DAILY #1 tablet 12/16/17 [Rx] amLODIPine [Norvasc] 10 mg PO DAILY tablet 12/16/17 [Rx] predniSONE [PredniSONE] 40 mg PO DAILY #2 tablet 12/16/17 [Rx] Allergies/Adverse Reactions: 3 Allergy/AdvReac Type Severity Reaction Status Date / Time No Known Allergies Allergy Verified 12/12/17 10:25 Date of admission: 12/12/17 08:43 Primary care physician: Sandy Casey CNP Consults: 12/12/17 08:45 Consult to Physician [CONS] Routine Consulting Provider: Shane Marquez Reason for Consult: esrd on hd adm with chf Time Notified: 08:46 Call Completed: No Consult to Control Operator Flow Coat [CONS] Routine Reason for SW Consult: discharge planning 12/12/17 14:30 Consult to Dialysis [CONS] ONCE 12/13/17 16:50 Consult to Occupational Therapy [CONS] Routine Comment: Evaluate, develop and implement POC Reason for Consult: eval for ecf Consult to Physical Therapy [CONS] Routine Comment: Evaluate, develop and implement POC Reason for Consult: eval for ecf 12/14/17 08:15 Consult to Dialysis [CONS] ONCE 12/16/17 07:45 Consult to Dialysis [CONS] ONCE Discharging clinician: Leda Moreland Anticipated date of discharge: 12/16/17 - Patient Status Disposition: Transfer SNF Condition: Good Functional capacity at discharge: wheelchair bound Overall status at discharge: patient is back to baseline - Discharge Instructions Follow Up With: Sandy Casey CNP [Primary Care Provider] - (From [facility] at [facility]) Additional Instructions: Please follow up with your primary care physician within five days after your discharge from the hospital. Please continue oral antibiotics as prescribed (Levaquin 500 mg one tablet on 12/18/17). Continue oral steroids as prescribed. Your home meds have been changed as follows: 1. Amlodipine has been increased to 10mg once a day 2. Carvedilol has been increased to 25mg twice a day. closely monitor your blood pressure and HR. Hold Carvedilol for heart rate less than 50. Inform your primary care physician about these medication changes. These changes were made due to your elevated blood pressure readings. Resume dialysis sessions as per your primary paper winder. Resume all other home medications as prescribed by your primary care physician. - Diet and Activity Activity: increase activity as tolerated, wear oxygen at all times, wear oxygen at night Diet: diabetic diet, low fat, low cholesterol, low salt diet Hospital course: Ms. Sequeira is a 72 year old female with PMH of CHF, ESRD on HD, COPD on LTOT, DM, HTN who was admitted for acute respiratory distress secondary to HCAP, COPD exacerbation, and volume overload secondary to CHF exacerbation. Pt was started on IV abx, systemic steroids, and underwent SENIOR LANDSCAPE ARCHITECT for volume removal. Pt responded well to therapy and abx were de-escalated as she clinically improved and based on her blood culture results. She was noted to be hypertensive upon arrival due to which her home medications were readjusted. At this time she is back to her baseline respiratory status and medically stable for discharge back to [place]. Pt in agreement with the discharge care and plan. - Time Spent with Patient Total time spent providing and/or coordinating discharge services: Greater than 30 minutes - Constitutional Vitals: Temp Pulse Resp BP Pulse Ox 98.0 F 57 16 140/58 98 12/16/17 11:28 12/16/17 11:28 12/16/17 11:28 12/16/17 11:28 12/16/17 11:28 General appearance: Present: A&O X 3, no acute distress - Head Head exam: Present: atraumatic, normocephalic - Eye Eye exam: Present: conjuntiva pink, sclera anicteric - Respiratory Respiratory exam: Present: CTAB. Absent: respiratory distress, wheezes - Cardiovascular Cardiovascular exam: Present: RRR, +S1, +S2. Absent: diastolic murmur, gallop, rubs, systolic murmur - GI/Abdominal GI/Abdominal exam: Present: normal bowel sounds, soft, no peritoneal signs. Absent: distended, tenderness - Extremities Exam Extremities exam: Present: warm, radial pulses palpable and symmetrical (s/p right foot amputation ). Absent: calf tenderness - Neurological Exam Neurological exam: Present: alert, oriented X3 - Psychiatric Psychiatric exam: Present: normal affect, normal mood
--- NOTE | 2017-12-16 11:59 | Physician Discharge Referral ---
[facility] Referral Info Transfer To: F Provider in Charge after Transfer: PCP - Diagnosis (1) Acute and chronic respiratory failure Priority: Primary Status: Resolved (2) HCAP (healthcare-associated pneumonia) Priority: Primary Status: Acute (3) COPD exacerbation Priority: Primary Status: Acute (4) CHF (congestive heart failure) Priority: Primary Status: Acute (5) Diabetes mellitus Priority: Secondary Status: Chronic (6) ESRD (end stage renal disease) Priority: Secondary Status: Chronic (7) HTN (hypertension) Priority: Secondary Status: Chronic (8) Hypothyroid Priority: Secondary Status: Chronic (9) DVT prophylaxis Priority: Secondary Status: Acute - Transfer Medications Prescriptions: Levofloxacin [Levaquin] 500 mg PO DAILY #1 tablet Home Medications: Atorvastatin [Lipitor] 40 mg PO HS 12/12/17 [History] Buspirone HCl [Buspar] 15 mg PO DAILY 12/12/17 [History] Calcium Acetate [Phos-LO] 667 mg PO TID 12/12/17 [History] Insulin Glargine [Lantus] 6 units SQ DAILY 12/12/17 [History] Ipratropium/Albuterol Neb [Duoneb] 3 ml IH AD 12/12/17 [History] Levothyroxine Sodium [Tirosint] 100 mcg PO DAILY 12/12/17 [History] Linagliptin [Tradjenta] 5 mg PO DAILY 12/12/17 [History] Lisinopril [Zestril] 10 mg PO DAILY 12/12/17 [History] Sertraline [Zoloft] 100 mg PO DAILY 12/12/17 [History] traZODone [TraZODone] 50 mg PO HS 12/12/17 [History] Carvedilol [Coreg] 25 mg PO BIDWM tablet 12/16/17 [Rx] Levofloxacin [Levaquin] 500 mg PO DAILY #1 tablet 12/16/17 [Rx] amLODIPine [Norvasc] 10 mg PO DAILY tablet 12/16/17 [Rx] predniSONE [PredniSONE] 40 mg PO DAILY #2 tablet 12/16/17 [Rx] Allergies/Adverse Reactions: 3 Allergy/AdvReac Type Severity Reaction Status Date / Time No Known Allergies Allergy Verified 12/12/17 10:25 - Respiratory Orders Smoking Cessation: Smoking cessation has been advised. For more information, call the [place] Tobacco Quit Line at 5-670-KAHS-NOW. - Rehabiliation Orders Other: Please follow up with your primary care physician within five days after your discharge from the hospital. Please continue oral antibiotics as prescribed (Levaquin 500 mg one tablet on 12/18/17). Continue oral steroids as prescribed. Your home meds have been changed as follows: 1. Amlodipine has been increased to 10mg once a day 2. Carvedilol has been increased to 25mg twice a day. closely monitor your blood pressure and HR. Hold Carvedilol for heart rate less than 50. Inform your primary care physician about these medication changes. These changes were made due to your elevated blood pressure readings. Resume dialysis sessions as per your primary teacher assistant. Resume all other home medications as prescribed by your primary care physician. CERTIFICATION: I certify that the transfer of the above named patient to an Extended Care Facility is necessary for the continuing treatment of the diagnosis listed. The above information is true and accurate reflection of patient's current condition. Confidential - Redisclosure prohibited without a patient's written consent.
--- NOTE | 2017-12-16 12:20 | Nephrology Progress Note ---
Date of Encounter: 12/16/17 Time of Encounter: 12:17 - Assessment and Plan (1) ESRD (end stage renal disease) Current Visit: Yes Status: Chronic HD TRS Renal diet. Renal dose medications. Additional dialysis as needed. (2) Pneumonia Current Visit: Yes Status: Acute Per primary team. Patient feels better today. Qualifiers: Pneumonia type: due to unspecified organism Laterality: right Lung location: upper lobe of lung Qualified Code(s): J18.1 - Lobar pneumonia, unspecified organism (3) HTN (hypertension) Current Visit: Yes Status: Chronic Blood pressure controlled. Titrate antihypertensive medications as needed. Qualifiers: Hypertension type: essential hypertension Qualified Code(s): I10 - Essential (primary) hypertension Subjective Principal diagnosis: ESRD Interval history: Patient seen. She has no new complaints. She wants to go home. Objective - Vital Signs Vital signs: Vital Signs Temp Pulse Resp BP Pulse Ox 12/16/17 11:47 16 98 12/16/17 11:28 98.0 F 57 16 140/58 98 12/16/17 08:12 100 12/16/17 07:53 18 100 12/16/17 07:13 98.1 F 54 18 115/76 100 12/16/17 03:58 16 98 12/16/17 03:43 97.4 F L 56 18 131/68 99 12/16/17 00:03 98.6 F 60 16 150/62 100 12/15/17 23:14 16 98 12/15/17 19:57 18 99 12/15/17 19:25 98.4 F 58 16 154/63 100 12/15/17 15:44 99.7 F H 60 16 157/67 99 Intake and Output 12/15/17 12/16/17 12/16/17 23:59 07:59 15:59 Intake Total 340 / 340 0 / 0 100 / 100 Balance 340 / 340 0 / 0 100 / 100 Intake: IV Fluids 100 / 100 100 / 100 Zosyn 3.375 GM In 0.9 % Sodium 100 / 100 100 / 100 Chloride 100 ML @ 25 mls/hr IVPB Q12H [facility] Rx#:[id number] Oral 240 / 240 0 / 0 Other: Meal Dinner Stool Size Small Smear Small Stool Consistency soft soft loose liquid Stool Color Brown Brown Brown Yellow # Urine Diapers 1 # Bowel Movement Diapers 1 1 1 Weight 62.46 kg Blood Glucose* 342 116 201 Patient Weight 12/16/17 23:59 Weight 62.46 kg - General Appearance General appearance: Present: well-developed, well-nourished EENT: Present: ATNC Neck: Present: supple Respiratory: Present: course breath sounds Cardiology: Present: no edema, regular rate Integumentary: Present: warm and dry Neurologic: Present: alert and oriented x3 Psychiatric: Present: mood/affect appropriate - Lab 12/16/17 05:39 12/16/17 05:39 Most recent lab results Calcium 7.9 mg/dL (8.6-10.3) L 12/16/17 05:39 Phosphorus 2.1 mg/dL (2.7-4.5) L 12/16/17 05:39 Magnesium 2.0 mg/dL (1.6-2.6) 12/16/17 05:39 Consult Discharge Plan - Plan Additional Instructions: Please follow up with your primary care physician within five days after your discharge from the hospital. Please continue oral antibiotics as prescribed (Levaquin 500 mg one tablet on 12/18/17). Continue oral steroids as prescribed. Your home meds have been changed as follows: 1. Amlodipine has been increased to 10mg once a day 2. Carvedilol has been increased to 25mg twice a day. closely monitor your blood pressure and HR. Hold Carvedilol for heart rate less than 50. Inform your primary care physician about these medication changes. These changes were made due to your elevated blood pressure readings. Resume dialysis sessions as per your primary psychologist industrial organizational. Resume all other home medications as prescribed by your primary care physician. Referrals: Sandy Casey, WELDING PROCESS ENGINEER [Primary Care Provider] - ([facility]) Prescriptions: Levofloxacin [Levaquin] 500 mg PO DAILY #1 tablet
[2017-12-16] MEDS ORDERED: Levofloxacin 750 MG/150 ML 750 MG/150 ML BAG IVPB ONE (16:00)
[2017-12-18] MEDS ORDERED: Levofloxacin 500 MG/100 ML 500 MG/100 ML BAG IVPB SCH (16:00)
== END 2017-12-16 14:17 | DRG 291 ==
LOC: 2ANU
PROVIDERS: ADMIT Internal Medicine; ATTEND Internal Medicine

== ENCOUNTER 2019-07-01 14:03 | Inpatient (IN) ==
[2019-07-01] MEDS ORDERED: Naloxone 0.4 MG/ML INJ IVP PRN ×2 (17:53→18:36)
[2019-07-01] MEDS ORDERED: Perit. Dialysis with Dex 2.5 % 12,000 ML PERITONEAL ONE ×2 (19:00)
[2019-07-01 19:40] LABS: Calcium 7.7 mg/dL (8.6-10.3); Potassium 2.7 mEq/L (3.5-5.1)
[2019-07-01] MEDS ORDERED: Ondansetron ODT 4 MG TAB.RAPDIS PO PRN (21:09)
[2019-07-01] MEDS ORDERED: cefTRIAXone 2,000 MG in Water for inj. (sterile) 20 ML IVP SCH (22:00)
[2019-07-01] MEDS ORDERED: Dextrose Gel 15 GM/37.5 ML TUBE PO PRN ×2 (22:27)
[2019-07-01] MEDS: D5% in Water 1,000 ML IVC PRN (22:43)
[2019-07-01] MEDS: *HR* Dextrose 50 % in Water (Syg) 50 ML SYRINGE IVP PRN (23:04)
[2019-07-02 01:43] LABS: Basophils % 0.1 %; Hematocrit 35.3 % (35.3-44.9); Hemoglobin 11.6 g/dL (11.5-15.4); Lymphocytes # 0.8 K/mcL (0.6-4.6); Lymphocytes % 3.9 %; Mean Corpuscular HGB Conc 32.9 g/dL (31.6-35.5); Mean Corpuscular Hemoglobin 31.4 pg (28.0-33.3); Mean Corpuscular Volume 95.4 fL (83.0-100.0); Mean Platelet Volume 10.2 fL (9.4-12.4); Monocytes # 1.5 K/mcL (0.0-1.3); Monocytes % 6.9 %; Neutrophils # 18.6 K/mcL (1.6-8.9); Platelet Count 152 K/mcL (140-400); Red Cell Distribution Width 13.5 % (11.5-14.5); Segmented Neutrophils % 88.1 %; White Blood Count 21.1 K/mcL (4.3-11.1)
[2019-07-02 02:02] LABS: Albumin 2.5 g/dL (3.5-5.7); Bilirubin,Total 0.4 mg/dL (0.3-1.0); Calcium 7.8 mg/dL (8.6-10.3); Globulin 2.5 g/dL (2.4-3.5); Potassium 2.8 mEq/L (3.5-5.1)
[2019-07-02] MEDS: D5% in Water 1,000 ML IVC PRN (06:18)
[2019-07-02] MEDS: *HR* Dextrose 50 % in Water (Syg) 50 ML SYRINGE IVP PRN (06:25)
[2019-07-02] MEDS: Insulin LISPRO 300 UNITS/3 ML VIAL SQ SCH ×3 (07:51→16:40)
[2019-07-02] MEDS ORDERED: carvediloL 25 MG TABLET PO SCH (08:00)
[2019-07-02] MEDS: Cyanocobalamin (B-12) 1,000 MCG TABLET PO SCH (08:07)
[2019-07-02] MEDS: cefTRIAXone 2,000 MG in Water for inj. (sterile) 20 ML IVP SCH (10:17)
[2019-07-02] MEDS ORDERED: Albumin 25% 25gram/100mL 25 GM/100 ML IV.SOLN IVPB PRN (10:36)
[2019-07-02] MEDS ORDERED: 0.9 % Sodium Chloride 250 ML IVC PRN (10:36)
[2019-07-02] MEDS ORDERED: 0.9 % Sodium Chloride 1,000 ML PRIME SCH (10:45)
[2019-07-02] MEDS ORDERED: Albumin 25% 12.5gm/50mL 25.0 GM/100 ML IV.SOLN ONE (11:36)
[2019-07-02] MEDS: *HR* OxyCODONE Immed Rel 5 MG TABLET PO PRN (13:04)
[2019-07-02 15:51] LABS: RBC,Peritoneal Fluid < 0.002 M/mcL
[2019-07-02 16:25] LABS: Amylase,Peritoneal Fluid < 10 Units/L (No Ref Range); Glucose,Peritoneal Fluid 216 mg/dL (No Ref Range); LDH,Peritoneal Fluid 52 Units/L (No Ref Range); Total Protein,Peritoneal Fluid < 3.0 g/dL
[2019-07-02 16:55] LABS: Appearance of Peritoneal Fl CLEAR (Clear)
[2019-07-02 16:59] LABS: Basophils,Peritoneal Fluid 0 %; Eosinophils,Peritoneal Fluid 0 %
[2019-07-02 18:48] LABS: Calcium 7.7 mg/dL (8.6-10.3); Potassium 3.6 mEq/L (3.5-5.1)
[2019-07-03 06:39] LABS: Basophils % 0.2 %; Eosinophils % 0.1 %; Hematocrit 31.6 % (35.3-44.9); Hemoglobin 10.1 g/dL (11.5-15.4); Immature Granulocytes % 1.2 % (0-4); Lymphocytes # 0.9 K/mcL (0.6-4.6); Lymphocytes % 5.7 %; Mean Corpuscular Hemoglobin 29.8 pg (28.0-33.3); Mean Corpuscular Volume 93.2 fL (83.0-100.0); Monocytes # 1.1 K/mcL (0.0-1.3); Monocytes % 6.8 %; Neutrophils # 13.4 K/mcL (1.6-8.9); Platelet Count 127 K/mcL (140-400); Red Blood Count 3.39 M/mcL (3.82-4.97); Red Cell Distribution Width 13.6 % (11.5-14.5); White Blood Count 15.5 K/mcL (4.3-11.1)
[2019-07-03 07:04] LABS: Calcium 7.8 mg/dL (8.6-10.3); Potassium 3.7 mEq/L (3.5-5.1)
[2019-07-03 07:11] LABS: Thyroid Stimulating Hormone 1.973 mcIU/mL (0.340-5.600)
[2019-07-03] MEDS: cefTRIAXone 2,000 MG in Water for inj. (sterile) 20 ML IVP SCH (08:39)
[2019-07-03] MEDS: Cyanocobalamin (B-12) 1,000 MCG TABLET PO SCH (08:39)
[2019-07-03] MEDS: Insulin LISPRO 300 UNITS/3 ML VIAL SQ SCH ×3 (08:40→16:37)
[2019-07-03] MEDS: Acetaminophen 325 MG TABLET PO SCH ×2 (15:49→19:03)
[2019-07-03] MEDS: *HR* OxyCODONE Immed Rel 5 MG TABLET PO PRN (21:41)
[2019-07-03] MEDS: Acyclovir 500 MG in D5% in Water 250 ML IVPB SCH (23:50)
[2019-07-04] MEDS ORDERED: Acyclovir 500 MG in D5% in Water 250 ML IVPB SCH
[2019-07-04] MEDS: Acetaminophen 325 MG TABLET PO SCH ×4 (00:18→18:34)
[2019-07-04] MEDS ORDERED: Aminoglycoside Consult 1 EACH MC ONE (08:53)
[2019-07-04] MEDS ORDERED: Perflutren Lipid Microsphere 1.3 ML in 0.9 % Sodium Chloride 8.7 ML IVP ONE (09:12)
[2019-07-04] MEDS: Insulin LISPRO 300 UNITS/3 ML VIAL SQ SCH ×3 (09:17→17:18)
[2019-07-04] MEDS: cefTRIAXone 2,000 MG in Water for inj. (sterile) 20 ML IVP SCH (09:23)
[2019-07-04] MEDS ORDERED: Isovue-370 500 ML BOTTLE IVP ONE (13:00)
[2019-07-04] MEDS: Cyanocobalamin (B-12) 1,000 MCG TABLET PO SCH (13:27)
[2019-07-04] MEDS: Aspirin Enteric Coated 81 MG Tablet PO SCH (14:27)
[2019-07-04] MEDS: *HR* Dextrose 50 % in Water (Syg) 50 ML SYRINGE IVP PRN (17:35)
[2019-07-04] MEDS: Ampicillin 2 GM in 0.9 % Sodium Chloride Mini Bag 100 ML IVPB SCH (22:42)
[2019-07-04] MEDS: Acyclovir 500 MG in D5% in Water 250 ML IVPB SCH (23:56)
[2019-07-05] MEDS: Acetaminophen 325 MG TABLET PO SCH ×4 (00:03→16:51)
[2019-07-05] MEDS: Ampicillin 2 GM in 0.9 % Sodium Chloride Mini Bag 100 ML IVPB SCH ×3 (03:58→09:25)
[2019-07-05 06:34] LABS: Basophils % 0.1 %; Eosinophils # 0.1 K/mcL (0.0-0.6); Eosinophils % 0.5 %; Hematocrit 31.2 % (35.3-44.9); Hemoglobin 10.1 g/dL (11.5-15.4); Immature Granulocytes % 0.6 % (0-4); Lymphocytes # 0.7 K/mcL (0.6-4.6); Lymphocytes % 4.8 %; Mean Corpuscular HGB Conc 32.4 g/dL (31.6-35.5); Mean Corpuscular Hemoglobin 31.2 pg (28.0-33.3); Mean Corpuscular Volume 96.3 fL (83.0-100.0); Mean Platelet Volume 10.3 fL (9.4-12.4); Monocytes % 6.5 %; Neutrophils # 13.5 K/mcL (1.6-8.9); Platelet Count 132 K/mcL (140-400); Red Blood Count 3.24 M/mcL (3.82-4.97); Red Cell Distribution Width 13.7 % (11.5-14.5); Segmented Neutrophils % 87.5 %; White Blood Count 15.4 K/mcL (4.3-11.1)
[2019-07-05 07:01] LABS: Calcium 8.1 mg/dL (8.6-10.3); Potassium 3.8 mEq/L (3.5-5.1)
[2019-07-05] MEDS: Insulin LISPRO 300 UNITS/3 ML VIAL SQ SCH ×3 (08:43→16:49)
[2019-07-05] MEDS: cefTRIAXone 2,000 MG in Water for inj. (sterile) 20 ML IVP SCH (09:25)
[2019-07-05] MEDS: Cyanocobalamin (B-12) 1,000 MCG TABLET PO SCH (09:26)
[2019-07-05] MEDS: Aspirin Enteric Coated 81 MG Tablet PO SCH (09:26)
[2019-07-05 20:59] LABS: ABG Base Excess -2 mEq/L (-2 to 3); ABG HCO3 25 mEq/L (21-27); ABG Oxygen Saturation 93 % (95-98); ABG PCO2 47 mmHg (35-45); ABG PH 7.32 pH Units (7.32-7.45); ABG PO2 74 mmHg (85-104); ABG TCO2 26 mEq/L (20-26)
[2019-07-05] MEDS ORDERED: 0.9 % Sodium Chloride 250 ML IVC ONE (21:19)
[2019-07-06] MEDS: Acetaminophen 325 MG TABLET PO SCH ×4 (00:34→15:23)
[2019-07-06] MEDS ORDERED: 0.9 % Sodium Chloride 1,000 ML IVC SCH (02:30)
[2019-07-06 04:07] LABS: ABG Base Excess -3 mEq/L (-2 to 3); ABG HCO3 24 mEq/L (21-27); ABG Oxygen Saturation 95 % (95-98); ABG PCO2 48 mmHg (35-45); ABG PO2 86 mmHg (85-104); ABG TCO2 25 mEq/L (20-26); Blood Gas Modality ASSIST CONTROL
[2019-07-06] MEDS: FentaNYL (PF) 1,000 MCG in 0.9 % Sodium Chloride 80 ML IVC SCH (04:15)
[2019-07-06] MEDS ORDERED: Norepinephrine 4 MG in 0.9 % Sodium Chloride 250 ML IVC SCH (04:15)
[2019-07-06] MEDS: Dexmedetomidine HCl 400 MCG/100 ML MLS IVC SCH ×2 (04:16→22:40)
[2019-07-06] MEDS ORDERED: Artificial Tears SOLN 15 ML BOTTLE BOTH EYES PRN (04:32)
[2019-07-06] MEDS: Norepinephrine 4 MG in 0.9 % Sodium Chloride 250 ML IVC SCH ×4 (04:46→21:20)
[2019-07-06 05:58] LABS: Basophils % 0.1 %; Eosinophils % 0.1 %; Hematocrit 33.9 % (35.3-44.9); Hemoglobin 10.8 g/dL (11.5-15.4); Immature Granulocytes % 1.3 % (0-4); Lymphocytes # 0.8 K/mcL (0.6-4.6); Lymphocytes % 4.2 %; Mean Corpuscular HGB Conc 31.9 g/dL (31.6-35.5); Mean Corpuscular Hemoglobin 30.9 pg (28.0-33.3); Mean Corpuscular Volume 97.1 fL (83.0-100.0); Mean Platelet Volume 9.6 fL (9.4-12.4); Monocytes # 0.9 K/mcL (0.0-1.3); Monocytes % 4.8 %; Neutrophils # 16.3 K/mcL (1.6-8.9); Platelet Count 153 K/mcL (140-400); Red Blood Count 3.49 M/mcL (3.82-4.97); Red Cell Distribution Width 14.1 % (11.5-14.5); Segmented Neutrophils % 89.5 %; White Blood Count 18.2 K/mcL (4.3-11.1)
[2019-07-06 06:18] LABS: Potassium 4.3 mEq/L (3.5-5.1)
[2019-07-06 06:43] LABS: ABG Base Excess -6 mEq/L (-2 to 3); ABG HCO3 20 mEq/L (21-27); ABG Oxygen Saturation 83 % (95-98); ABG PCO2 43 mmHg (35-45); ABG PH 7.29 pH Units (7.32-7.45); ABG PO2 54 mmHg (85-104); ABG TCO2 22 mEq/L (20-26); Blood Gas Modality ASSIST CONTROL; Blood Gas VT 450 cc
[2019-07-06 08:50] LABS: ABG Base Excess -7 mEq/L (-2 to 3); ABG HCO3 17 mEq/L (21-27); ABG Oxygen Saturation 98 % (95-98); ABG PCO2 29 mmHg (35-45); ABG PH 7.39 pH Units (7.32-7.45); ABG PO2 106 mmHg (85-104); ABG TCO2 18 mEq/L (20-26); Blood Gas Modality VC; Blood Gas VT 450 cc
[2019-07-06] MEDS ORDERED: *HR* Midazolam HCl 2 MG/2 ML VIAL IV ONE (09:04)
[2019-07-06] MEDS ORDERED: *HR* Etomidate 20 MG/10 ML AMPUL IVP ONE (09:04)
[2019-07-06] MEDS: Cyanocobalamin (B-12) 1,000 MCG TABLET PO SCH (10:22)
[2019-07-06] MEDS: Artificial Tears SOLN 15 ML BOTTLE BOTH EYES SCH ×5 (10:22→23:39)
[2019-07-06] MEDS: Insulin LISPRO 300 UNITS/3 ML VIAL SQ SCH ×5 (10:22→17:16)
[2019-07-06] MEDS: Aspirin Enteric Coated 81 MG Tablet PO SCH (10:23)
[2019-07-06] MEDS: Chlorhexidine Rinse 15 ML MOUTHWASH MM SCH ×2 (10:23→20:44)
[2019-07-06] MEDS: Piperacillin/Tazobactam 3.375 GM in 0.9 % Sodium Chloride Mini Bag 100 ML IVPB SCH ×2 (10:23→20:44)
[2019-07-06] MEDS: Ergocalciferol (VIT D2) 50,000 UNIT (1.25MG) CAP PO SCH ×2 (10:44→11:06)
[2019-07-06] MEDS ORDERED: Albumin 25% 25gram/100mL 25 GM/100 ML IV.SOLN IVPB PRN (13:21)
[2019-07-06] MEDS ORDERED: Albumin 25% 25gram/100mL 25 GM/100 ML IV.SOLN IVPB ONE (13:31)
[2019-07-06] MEDS: Pantoprazole 40 MG VIAL IVP SCH (15:21)
[2019-07-06] MEDS: Albumin 25% 25gram/100mL 25 GM/100 ML IV.SOLN IVPB SCH ×2 (15:22→23:41)
[2019-07-06] MEDS ORDERED: Piperacillin/Tazobactam 2.25 GM in 0.9 % Sodium Chloride Mini Bag 100 ML IVPB SCH (16:00)
[2019-07-07] MEDS: Insulin LISPRO 300 UNITS/3 ML VIAL SQ SCH ×3 (01:13→12:02)
[2019-07-07] MEDS: Acetaminophen 325 MG TABLET PO SCH ×2 (01:13→04:39)
[2019-07-07 04:32] LABS: ABG Base Excess -15 mEq/L (-2 to 3); ABG HCO3 11 mEq/L (21-27); ABG Oxygen Saturation 96 % (95-98); ABG PCO2 24 mmHg (35-45); ABG PH 7.26 pH Units (7.32-7.45); ABG PO2 94 mmHg (85-104); ABG TCO2 12 mEq/L (20-26); Blood Gas Modality ASSIST CONTROL; Blood Gas VT 450 cc
[2019-07-07] MEDS: Artificial Tears SOLN 15 ML BOTTLE BOTH EYES SCH ×5 (04:39→20:53)
[2019-07-07] MEDS: FentaNYL (PF) 1,000 MCG in 0.9 % Sodium Chloride 80 ML IVC SCH (04:39)
[2019-07-07 04:45] LABS: Hematocrit 35.2 % (35.3-44.9); Mean Corpuscular HGB Conc 31.3 g/dL (31.6-35.5); Mean Corpuscular Hemoglobin 30.6 pg (28.0-33.3); Mean Corpuscular Volume 97.8 fL (83.0-100.0); Mean Platelet Volume 9.4 fL (9.4-12.4); Platelet Count 211 K/mcL (140-400); Red Cell Distribution Width 14.3 % (11.5-14.5); White Blood Count 20.5 K/mcL (4.3-11.1)
[2019-07-07] MEDS: Norepinephrine 4 MG in 0.9 % Sodium Chloride 250 ML IVC SCH ×3 (05:00→07:49)
[2019-07-07 05:03] LABS: Calcium 8.3 mg/dL (8.6-10.3)
[2019-07-07] MEDS ORDERED: Acetaminophen 325 MG TABLET PO PRN ×2 (07:45→15:52)
[2019-07-07] MEDS: Albumin 25% 25gram/100mL 25 GM/100 ML IV.SOLN IVPB SCH (08:17)
[2019-07-07] MEDS: Piperacillin/Tazobactam 3.375 GM in 0.9 % Sodium Chloride Mini Bag 100 ML IVPB SCH (08:18)
[2019-07-07] MEDS: Aspirin Enteric Coated 81 MG Tablet PO SCH (08:18)
[2019-07-07] MEDS: Chlorhexidine Rinse 15 ML MOUTHWASH MM SCH (08:19)
[2019-07-07] MEDS: Pantoprazole 40 MG VIAL IVP SCH (08:19)
[2019-07-07] MEDS: Cyanocobalamin (B-12) 1,000 MCG TABLET PO SCH (08:19)
[2019-07-07 08:44] LABS: Magnesium 1.9 mg/dL (1.6-2.6)
[2019-07-07] MEDS ORDERED: Norepinephrine 8 MG in 0.9 % Sodium Chloride 250 ML IVC SCH (08:45)
[2019-07-07] MEDS ORDERED: *HR* LORazepam 2 MG/ML VIAL IVP ONE ×2 (12:15→12:20)
[2019-07-07] MEDS ORDERED: Glycopyrrolate 0.2 MG/ML VIAL IVP ONE (12:18)
[2019-07-07] MEDS ORDERED: *HR* LORazepam 2 MG/ML VIAL IVP PRN ×4 (12:21→15:52)
[2019-07-07] MEDS ORDERED: *HR* LORazepam 2 MG/ML VIAL ONE (12:22)
[2019-07-07] MEDS ORDERED: Atropine Sulfate 1% 40 DROP/2 ML BOTTLE SL PRN ×2 (15:42→15:52)
[2019-07-07] MEDS ORDERED: Scopolamine Patch 1.5 MG PATCH.TD72 TD SCH (15:45)
[2019-07-07] MEDS ORDERED: FentaNYL (PF) 1,000 MCG in 0.9 % Sodium Chloride 80 ML IVC SCH (15:52)
[2019-07-07] MEDS ORDERED: *HR* Dextrose 50 % in Water (Syg) 50 ML SYRINGE IVP PRN (15:52)
[2019-07-07] MEDS ORDERED: Dextrose Gel 15 GM/37.5 ML TUBE PO PRN ×2 (15:52)
[2019-07-07] MEDS ORDERED: D5% in Water 1,000 ML IVC PRN (15:52)
[2019-07-07] MEDS ORDERED: Artificial Tears SOLN 15 ML BOTTLE BOTH EYES PRN (15:52)
[2019-07-07 21:50] VITALS: BP 52/32
[2019-07-08] MEDS: Artificial Tears SOLN 15 ML BOTTLE BOTH EYES SCH ×2 (02:08→03:58)
[2019-07-10] MEDS ORDERED: Scopolamine Patch 1.5 MG PATCH.TD72 TD SCH (15:45)
== END 2019-07-08 05:43 | disposition expired | DRG 64 ==
LOC: 2ANU → SUATTDRO 15:56 → ICNU 07-06 02:08 → 2ANU 07-07 17:28
PROVIDERS: ADMIT Internal Medicine Nephrology; ATTEND Pharmacist